=== PATIENT | female | born 1955 | race Caucasian/White ===

== ENCOUNTER 2017-04-25 10:39 | Emergency (ER) | payer BC, OTHER ==
[~2017-04-25] VITALS: Ht 165.1 cm; Wt 81.6 kg
[~2017-04-25 10:39] MED LIST: ALEN70TA2 PO; IRONTAB35 OR; LEVOPOW43 PO; POTA10TA75 PO
[2017-04-25 11:38] LABS: Basophils # (auto) 0 uL; Basophils % (auto) 0.6 % (0.0-2.0); Eosinophils # (auto) 0.2 uL; Eosinophils % (auto) 3.1 % (0.0-7.0); Hematocrit 44.4 % (36.0-46.0); Hemoglobin 14.6 g/dL (12.2-16.2); Lymphocytes # (auto) 2.2 uL; Lymphocytes % (auto) 28.8 % (10.0-50.0); Mean Corpuscular Hemoglobin 30.1 pg (28.0-32.0); Mean Corpuscular Hgb Conc. 32.9 g/dL (32.0-36.0); Mean Corpuscular Volume 91.6 fL (80.0-100.0); Monocytes # (auto) 0.6 uL; Monocytes % (auto) 8.2 % (0.0-12.0); Neutrophils # (auto) 4.5 uL; Neutrophils % (auto) 59.3 % (37.0-80.0); Nucleated Red Blood Cells % 0.3 %; Platelet Count (auto) 292 10^3/uL (140-450); Red Blood Cells 4.84 10^6/uL (4.0-5.20); Red Cell Distribution Width 14.1 % (11.8-14.3); White Blood Cell 7.5 10^3/uL (4.4-10.8)
[2017-04-25 11:55] LABS: BUN/Creatinine Ratio 22.7; Potassium 4.5 mmol/L (3.5-5.1)
[2017-04-25 11:58] LABS: Bilirubin, Total 0.4 mg/dL (0.2-1.0); Total Protein 7.6 g/dL (6.4-8.2)
[2017-04-25 13:45] VITALS: BP 109/65
== END 2017-04-25 13:51 | disposition home or self-care (01) ==
LOC: ER 10:39
DX: R42 Dizziness and giddiness (principal); R20.0 Anesthesia of skin; Z88.0 Allergy status to penicillin; Z88.8 Allergy status to other drugs, medicaments and biological substances; Z86.73 Personal history of transient ischemic attack (TIA), and cerebral infarction without residual deficits; Z90.49 Acquired absence of other specified parts of digestive tract; Z98.51 Tubal ligation status
CPT/HCPCS: 36415; 70450; 80053; 85025

== ENCOUNTER 2018-01-19 08:16 | Emergency (ER) | payer OTHER ==
[~2018-01-19] VITALS: Ht 167.6 cm; Wt 80.3 kg
[2018-01-19 08:36] LABS: Urine WBC None Seen /hpf (0 - 5)
[2018-01-19 08:47] LABS: Basophils # (auto) 0.1 uL; Basophils % (auto) 0.9 % (0.0-2.0); Eosinophils # (auto) 0.2 uL; Eosinophils % (auto) 2.5 % (0.0-7.0); Hematocrit 42.2 % (36.0-46.0); Hemoglobin 13.8 g/dL (12.2-16.2); Lymphocytes # (auto) 2.1 uL; Lymphocytes % (auto) 24.5 % (10.0-50.0); Mean Corpuscular Hemoglobin 30.2 pg (28.0-32.0); Mean Corpuscular Hgb Conc. 32.6 g/dL (32.0-36.0); Mean Corpuscular Volume 92.5 fL (80.0-100.0); Monocytes # (auto) 0.9 uL; Monocytes % (auto) 10.7 % (0.0-12.0); Neutrophils # (auto) 5.3 uL; Neutrophils % (auto) 61.4 % (37.0-80.0); Platelet Count (auto) 296 10^3/uL (140-450); Red Blood Cells 4.57 10^6/uL (4.0-5.20); Red Cell Distribution Width 13.4 % (11.8-14.3); White Blood Cell 8.6 10^3/uL (4.4-10.8)
[2018-01-19 08:48] LABS: Urine Bacteria FEW /hpf (None Seen); Urine Blood TRACE /uL (Negative); Urine Specific Gravity 1.002 (1.001-1.035)
[2018-01-19 08:59] LABS: Albumin 3.7 g/dL (3.4-5.0); Potassium 3.6 mmol/L (3.5-5.1)
[2018-01-19 09:30] LABS: BUN/Creatinine Ratio 20.9; Bilirubin, Total 0.4 mg/dL (0.2-1.0); Total Protein 7.1 g/dL (6.4-8.2)
[2018-01-19 11:48] VITALS: BP 107/57
[2018-01-19] MEDS ORDERED: THIAMINE INJ 100 MG, MULTIPLE VITAMIN 10 ML, FOLIC ACID 1 MG, MAGNESIUM SULF SDV 50% 8 ... IV SCH ×5 (12:00)
== END 2018-01-19 12:00 | disposition home or self-care (01) ==
LOC: ER 08:16
DX: R20.2 Paresthesia of skin (principal); E07.89 Other specified disorders of thyroid; Z86.73 Personal history of transient ischemic attack (TIA), and cerebral infarction without residual deficits; Z90.89 Acquired absence of other organs; Z98.51 Tubal ligation status
CPT/HCPCS: 36415; 70450; 71046; 80053; 81001; 83735; 83880; 85025; 93005